=== PATIENT | female | born 1975 | race American Indian/Alaskan Native ===

== ENCOUNTER 2016-10-20 00:27 | Emergency (ER) | payer SELFPAY ==
[2016-10-20 01:01] VITALS: BP 136/102
[2016-10-20] MEDS ORDERED: NACL 0.9% 1000 ML 1,000 ML ONE (01:20)
[2016-10-20] MEDS ORDERED: NACL 0.9% 1000 ML 1,000 ML IV ONE (01:22)
[2016-10-20] MEDS ORDERED: NORCO 5/325 PO ONE (03:03)
--- NOTE | 2016-10-20 03:12 | Emergency Department Report ---
ED Eye Problem HPI - General Chief complaint: Eye Problems Stated complaint: PEPPER IN EYES Source: patient Mode of arrival: Ambulatory Limitations: No Limitations - History of Present Illness Initial comments: 41-year-old female comes in with complaint of bilateral eye pain and burning. Patient reports that she was working at a job and had cay[place]raham Pepper on her hands in touched her eyes. She comes in with both eyes burning. She is accompanied by her son that brought her in. MD chief complaint: eye pain, eye redness - Related Data Home Medications Medication Instructions Recorded Confirmed Last Taken Dicyclomine [Bentyl] 20 mg PO QID 11/11/14 11/11/14 Unknown Oseltamivir [Tamiflu] 75 mg PO BID 11/11/14 11/11/14 Unknown Promethazine [Phenergan] 25 mg PO Q4HR PRN 11/11/14 11/11/14 Unknown Previous Rx's Medication Instructions Recorded Last Taken Type traMADol [Ultram 50 MG tab] 50 mg PO Q6HR PRN #20 tablet 11/11/14 Unknown Rx Acetaminophen/Codeine [Tylenol #3] 1 tab PO Q6H PRN #20 tab 10/20/16 Unknown Rx Ofloxacin [Ocuflox 0.3%] 1 - 2 drop OP Q6HR #10 ml 10/20/16 Unknown Rx Allergies Allergy/AdvReac Type Severity Reaction Status Date / Time ketorolac tromethamine Allergy Swelling Verified 01/02/14 13:06 [From Toradol] Penicillins Allergy Swelling Verified 08/25/14 18:25 shellfish derived Allergy Swelling Verified 01/02/14 13:06 ED Review of Systems ROS: Stated complaint: PEPPER IN EYES Other details as noted in HPI Eyes: as per HPI ED Past Medical Hx - Past Medical History Previous Medical History?: No Hx Hypertension: No Hx CVA: No Hx Heart Attack/AMI: No Hx Pulmonary Embolism: No Hx GERD: No Hx Sickle Cell Disease: No Hx Arthritis: No Hx Seizures: No Hx Kidney Stones: No Hx Psychiatric Treatment: No Hx Asthma: No Hx COPD: No Hx Tuberculosis: No Hx Dementia: No Hx HIV: No - Surgical History Past Surgical History?: Yes Hx Coronary Stent: No Hx Open Heart Surgery: No Hx Internal Defibrillator: No Hx Cholecystectomy: No Hx Breast Surgery: No Additional Surgical History: x 3. D & C x 2. right hand tendon repair - Social History Smoking Status: Never Smoker Substance Use Type: None - Medications Home Medications: Home Medications Medication Instructions Recorded Confirmed Last Taken Type Dicyclomine [Bentyl] 20 mg PO QID 11/11/14 11/11/14 Unknown History Oseltamivir [Tamiflu] 75 mg PO BID 11/11/14 11/11/14 Unknown History Promethazine [Phenergan] 25 mg PO Q4HR PRN 11/11/14 11/11/14 Unknown History traMADol [Ultram 50 MG tab] 50 mg PO Q6HR PRN #20 tablet 11/11/14 Unknown Rx Acetaminophen/Codeine [Tylenol #3] 1 tab PO Q6H PRN #20 tab 10/20/16 Unknown Rx Ofloxacin [Ocuflox 0.3%] 1 - 2 drop OP Q6HR #10 ml 10/20/16 Unknown Rx ED Physical Exam - General Limitations: No Limitations General appearance: alert, in no apparent distress - Eye Eye exam: Present: PERRL, conjunctival injection ED Course Vital Signs 10/20/16 00:57 Temperature 98.1 F Pulse Rate 87 Respiratory 24 Rate Blood Pressure 136/102 O2 Sat by Pulse 100 Oximetry - Reevaluation(s) Reevaluation #1: 10/20/16 04:21 She reports she feels much better after getting her eyes flushed and with the Tylenol 3. She does still have some discomfort but not as bad as it wasn't beginning. ED Medical Decision Making - Medical Decision Making Patient has been evaluated by this provider in fast track. [employer] was able to set up an IV flush. 2 drops of tetracaine normal saline flush. Patient reports that in the beginning of felt good now the pain is coming back. We will give patient a [place] for pain and discomfort. Fluorescein exam was performed which showed a left corneal abrasion. We will place patient on Ocuflox 0.3% gtts. Referral her to [facility]. He verbalized understanding. Critical care attestation.: If time is entered above; I have spent that time in minutes in the direct care of this critically ill patient, excluding procedure time. ED Disposition Clinical Impression: Cornea abrasion Qualifiers: Encounter type: initial encounter Laterality: left Qualified Code(s): S05.02XA - Injury of conjunctiva and corneal abrasion without foreign body, left eye, initial encounter Disposition: DISCHARGED TO HOME OR SELFCARE Is pt being admited?: No Does the pt Need Aspirin: No Condition: Stable Instructions: Corneal Abrasion (ED) Additional Instructions: Very important to use the antibiotic eyedrops to both eyes. As well as is very very important for you to follow-up with the [facility] within 1-2 days. Prescriptions: Acetaminophen/Codeine [Tylenol #3] 1 tab PO Q6H PRN #20 tab PRN Reason: Pain Ofloxacin [Ocuflox 0.3%] 1 - 2 drop OP Q6HR #10 ml Referrals: PRIMARY CARE, [Primary Care Provider] - 3-5 Days ELIEL SMITH MD [Staff Physician] - 3-5 Days CLARIBEL KEVIN MD [Staff Physician] - 3-5 Days Forms: Work/School Release Form(ED), Accompanied Note
[2016-10-20] MEDS ORDERED: FUL-GLO OP ONE ×2 (03:58→04:00)
== END 2016-10-20 04:17 | disposition home or self-care (01) ==
LOC: ED 00:27
DX: S05.02XA Injury of conjunctiva and corneal abrasion without foreign body, left eye, initial encounter (principal); X58.XXXA Exposure to other specified factors, initial encounter; Y93.9 Activity, unspecified; Y92.9 Unspecified place or not applicable; Y99.9 Unspecified external cause status
CPT/HCPCS: 96360; 99283; J7030

== ENCOUNTER 2017-06-19 23:36 | Emergency (ER) | payer SELFPAY ==
[2017-06-20 11:44] VITALS: BP 129/102
== END 2017-06-20 04:24 | disposition left against medical advice (07) ==
LOC: ED 23:36
DX: H57.8 Other specified disorders of eye and adnexa (principal); Z53.21 Procedure and treatment not carried out due to patient leaving prior to being seen by health care provider